=== PATIENT | male | born 1995 | race Caucasian/White ===

== ENCOUNTER 2018-09-30 08:34 | Outpatient (CLI) | payer OTHER, BC ==
[~2018-09-30] VITALS: Ht 193 cm; Wt 113.4 kg
[2018-10-01] MEDS ORDERED: AZIT100S19 PO (10:10)
[2018-10-01] MEDS ORDERED: TETRACAINESUCKERS MT (10:10)
[2018-10-01] MEDS ORDERED: HYDR15SO8 PO (10:10)
[2018-10-01] MEDS ORDERED: DEXAINTSOL PO (10:10)
== END 2018-09-30 09:52 ==
LOC: PREOP 08:34
PROVIDERS: ATTEND Otolaryngology Otolaryngology/Facial Plastic Surgery
DX: Z01.818 Encounter for other preprocedural examination (principal)

== ENCOUNTER 2018-10-01 07:10 | Day surgery (SDC) | payer BC, OTHER ==
[~2018-10-01] VITALS: Ht 193 cm; Wt 113.4 kg
[2018-10-01] VITALS (11 sets, daily range): BP systolic 120–146; BP diastolic 73–92
--- NOTE | 2018-10-01 07:24 | Progress Note-Pre Operative ---
Pre-Operative Progress Note H&P Reviewed The H&P was reviewed, patient examined and no changes noted. Date Seen by Provider: Oct 01, 2018 Time Seen by Provider: 07:15 Date H&P Reviewed: Oct 01, 2018 Time H&P Reviewed: 07:15 Pre-Operative Diagnosis: Rec Tons ODILIA CHRISTINA MD Oct 01, 2018 07:24
[2018-10-01] MEDS: LACTATED RINGERS 1,000 ML IV PRN ×2 (07:35→09:46)
[2018-10-01 07:47] LABS: BASOPHILS % (AUTO) 1 % (0-10); EOSINOPHILS # (AUTO) 0.2 10^3/uL (0.0-0.3); EOSINOPHILS % (AUTO) 3 % (0-10); HEMATOCRIT 43 % (40-54); HEMOGLOBIN 14.4 G/DL (13.3-17.7); LYMPHOCYTES # (AUTO) 2.8 X 10^3 (1.0-4.0); LYMPHOCYTES % (AUTO) 40 % (12-44); MEAN CORPUSCULAR HEMOGLOBIN 29 PG (25-34); MEAN CORPUSCULAR HGB CONC 33 G/DL (32-36); MEAN CORPUSCULAR VOLUME 86 FL (80-99); MEAN PLATELET VOLUME 9.9 FL (7.4-10.4); MONOCYTES # (AUTO) 0.7 X 10^3 (0.0-1.0); MONOCYTES % (AUTO) 10 % (0-12); NEUTROPHILS # (AUTO) 3.1 X 10^3 (1.8-7.8); NEUTROPHILS % (AUTO) 46 % (42-75); PLATELET COUNT 250 10^3/uL (130-400); RED CELL DISTRIBUTION WIDTH 13.7 % (10.0-14.5); WHITE BLOOD COUNT 6.8 10^3/uL (4.3-11.0)
[2018-10-01] MEDS ORDERED: proPOfol 200 MG/20 ML (DIPRIVAN) VIAL IV ONE ×2 (08:05→09:09)
[2018-10-01] MEDS ORDERED: LIDOCAINE PF 2% 5 ML (XYLOCAINE) VIAL ONE (08:05)
[2018-10-01] MEDS ORDERED: fentaNYL INJECTION 100 MCG/2 ML AMP ONE (08:06)
[2018-10-01] MEDS ORDERED: SUCCINYLCHOLINE INJ 100 MG/5 ML SYR ONE (08:06)
[2018-10-01] MEDS ORDERED: ROCURONIUM 10 MG/ML 5 ML SYRINGE IV ONE (08:06)
[2018-10-01] MEDS ORDERED: MIDAZOLAM 2 MG/2 ML (VERSED) VIAL ONE (08:06)
[2018-10-01] MEDS ORDERED: DEXAMETHASONE 10 MG/ML (DECADRON) 1 ML VIAL ONE (08:07)
[2018-10-01] MEDS ORDERED: ONDANSETRON 4 MG/2 ML (SDV) Z0FRAN ONE (08:07)
[2018-10-01] MEDS ORDERED: SEVOFLURANE (ULTANE) 15 ML INHAL SOLN ONE ×2 (08:14)
[2018-10-01] MEDS ORDERED: HYDROmorphone 2 MG/ML VIAL (DILAUDID) ONE (08:40)
[2018-10-01] MEDS ORDERED: NS IV 1000 ML 1,000 ML IV SCH (08:58)
--- NOTE | 2018-10-01 08:58 | Progress Note-Post Operative ---
Post-Operative Progess Note Surgeon (s)/Metal Bending Machine Operator (s) Surgeon ODILIA CHRISTINA MD Metal Bending Machine Operator n/a Pre-Operative Diagnosis Rec Tons Post-Operative Diagnosis same Post-Op Procedure Note Date of Procedure: Oct 01, 2018 Name of Procedure Performed: Tonsillectomy Description & Findings Description and Findings: n/a Anesthesia Type get Estimated Blood Loss minimal Packing none. Specimen(s) collected/removed tonsils ODILIA CHRISTINA MD Oct 01, 2018 08:58
[2018-10-01] MEDS ORDERED: HYDROcodone/APAP 7.5MG-325 MG/15 ML (LORTAB) UDC PO PRN (09:00)
[2018-10-01] MEDS ORDERED: APAP 325 MG/10.15 ML LIQ (TYLENOL) UDC PO PRN (09:00)
[2018-10-01] MEDS ORDERED: HYDROmorphone 2 MG/ML VIAL (DILAUDID) IV ONE (09:15)
[2018-10-01] MEDS ORDERED: ONDANSETRON 4 MG/2 ML (SDV) Z0FRAN IVP PRN (09:15)
[2018-10-01] MEDS ORDERED: TETRACAINESUCKERS MT (10:10)
[2018-10-01] MEDS ORDERED: AZIT100S19 PO (10:10)
[2018-10-01] MEDS ORDERED: HYDR15SO8 PO (10:10)
[2018-10-01] MEDS ORDERED: DEXAINTSOL PO (10:10)
--- NOTE | 2018-10-01 14:31 | Anesthesia-General Post-Op ---
General Patient Condition Mental Status/LOC: Same as Preop Cardiovascular: Satisfactory Nausea/Vomiting: Absent Respiratory: Satisfactory Pain: Controlled Complications: Absent Post Op Complications Complications None Follow Up Care/Instructions Patient Instructions None needed. Anesthesia/Patient Condition Patient Condition Patient was seen this morning after the procedure and he was doing well, no complaints, stable vital signs, no apparent adverse anesthesia problems. BAKARI GARG DO Oct 01, 2018 14:31
== END 2018-10-01 12:05 | disposition home or self-care (01) ==
LOC: SDC 07:10
PROVIDERS: ATTEND Otolaryngology Otolaryngology/Facial Plastic Surgery
DX: J35.01 Chronic tonsillitis (principal); K21.9 Gastro-esophageal reflux disease without esophagitis; F17.290 Nicotine dependence, other tobacco product, uncomplicated
CPT/HCPCS: 36415; 85025; 87081